=== PATIENT | female | born 1970 | race American Indian/Alaskan Native ===

== ENCOUNTER 2018-03-21 10:31 | Inpatient (IN) | payer OTHER ==
[2018-03-21] MEDS ORDERED: Propofol 10 mg/ml Inj (20 ML) ONE (12:07)
[2018-03-21] MEDS ORDERED: Midazolam 2 MG/2 ML VIAL ONE (12:07)
[2018-03-21] MEDS ORDERED: ceFAZolin IV 1 gm in Dextrose 2 GM/100 ML BAG IVPB ONE (13:35)
[2018-03-21] MEDS ORDERED: Neostigmine Methylsulfate 3mg/3ml Syringe IV ONE (16:37)
[2018-03-21] MEDS ORDERED: Methylene Blue 10 mg/mL(10ml) IV ONE (17:02)
[2018-03-21] MEDS ORDERED: HYDROmorphone 0.5 mg/0.5 ml ISec IVP PRN (17:28)
--- NOTE | 2018-03-21 17:32 | PCM.SURG1 ---
Surgeon's Initial Post Op Note - Surgeon's Notes Surgeon: Leona valente MD Manager Medicaid: Russell Garcia MD Type of Anesthesia: General Endo Pre-Operative Diagnosis: Abnromal uterine bleeidng, pelvic pain, symptomatic fibroid uterus, pelvic pressure Operative Findings: enlarged 20 + week enarlged multifibroid uteurs, normal tubes, left ovary adherent to uterus with small bowel adhesions posterioly, anterior myoma 4cm, enlarged 12 cm posterio myoma along right anterior uterien artery, abdmina myomecotmy performed in conjuction with a supracerbica lhysterecotmy, bilateura uteral jets on cystsocpy. Dr Emory Garcia was surgical assistan and was presnet for entire case and eseensial in gainin entry, retraction, expousre,performing myoecotmy, supcracericl hysterecotmy, cloign all layers. blood transfusion1 unit intraoperative Post-Operative Diagnosis: same as above Operation Performed: Exploratory larparscpoy, supracervical hysterecotmy, abdominal myomecotmy, left salpingoophercotmy, right salpingectomy, cystoscopy, lysis of small bowel adhesions Specimen/Specimens Removed: uteurs, portion of cervix, left and right fallopian tubes, left oophrecotmy, Estimated Blood Loss: EBL {In ML}: 600 Blood Products Given: N/A Drains Used: No Drains Post-Op Condition: Good Date of Surgery/Procedure: 03/21/18 Time of Surgery/Procedure: 14:00
[2018-03-21] MEDS ORDERED: Lactated Ringer's 1,000 ML IV ONE ×2 (17:46)
[2018-03-21] MEDS ORDERED: Sodium Chloride 0.9% 500 ML IV ONE (18:54)
[2018-03-21 19:00] LABS: HEMOGLOBIN 9.5 g/dL (11.0-16.0)
[2018-03-21] MEDS: Lactated Ringer's 1,000 ML IV SCH (19:40)
[2018-03-21] MEDS: Acetaminophen 650mg/20.3ml solution UD PO SCH (22:25)
[2018-03-22] MEDS: cefOXitin IV 1 gm in Dextrose 1 GM/50 ML BAG IVPB SCH ×2 (01:00→09:18)
[2018-03-22] MEDS ORDERED: HYDROmorphone 0.5 mg/0.5 ml ISec IVP STA (01:27)
[2018-03-22] MEDS: Lactated Ringer's 1,000 ML IV SCH (04:30)
[2018-03-22] MEDS: Acetaminophen 650mg/20.3ml solution UD PO SCH ×3 (06:16→22:00)
[2018-03-22 08:05] LABS: HEMOGLOBIN 8.1 g/dL (11.0-16.0); MEAN CELL VOLUME 87.4 fL (81.0-99.0); MEAN CORPUSCULAR HEMOGLOBIN 29.2 pg (27.0-31.0); MEAN CORPUSCULAR HGB CONC 33.4 g/dL (33.0-37.0); MEAN PLATELET VOLUME 9.3 fL (7.2-11.7); RBC 2.79 Mil/uL (3.80-5.20); RED CELL DISTRIBUTION WIDTH 16.1 % (11.5-14.5); WHITE BLOOD COUNT 12.5 K/uL (4.8-10.8)
[2018-03-22 08:25] LABS: ALB/GLOB RATIO 1.1 (1.0-2.1); ALBUMIN 2.9 g/dL (3.5-5.0); ALT/SGPT 23 U/L (9-52); AST/SGOT 32 U/L (14-36); BLOOD UREA NITROGEN 8 mg/dL (7-17); CALCIUM 7.7 mg/dl (8.6-10.4); GFR NON-AFRICAN AMERICAN > 60
[2018-03-22] MEDS ORDERED: Benzocaine/Menthol (Cepacol) Lozenge MT PRN (10:15)
--- NOTE | 2018-03-22 11:47 | CP.PCM.PN ---
Subjective - Date & Time of Evaluation Date of Evaluation: 03/22/18 Time of Evaluation: 10:00 - Subjective Subjective: Pt seen and examiend and reports pain isn RLQ with touching near inciciosn, currently 3/10 controlled with IV pain medcaion. pt not yet out of bed, toelraing liquids wihtout nause, vomiting dneis any fever, hcill, naues, ovmitng, cp, sob, dizzyness, lighthenadd Objective - Vital Signs/Intake and Output Vital Signs (last 24 hours): Temp Pulse Resp BP Pulse Ox 98.6 F 68 18 109/57 L 98 03/22/18 08:00 03/22/18 08:00 03/22/18 08:00 03/22/18 08:00 03/22/18 08:00 Intake and Output: 03/22/18 03/22/18 06:59 18:59 Intake Total 1350 125 Output Total 1950 Balance -600 125 - Medications Medications: Current Medications Acetaminophen (Tylenol 650mg/20.3ml Solution Ud) 975 mg PO Q8 [facility] Last Admin: 03/22/18 06:16 Dose: 975 mg Benzocaine/Menthol (Cepacol Sore Throat) 1 meghna MT Q4 PRN PRN Reason: Sore Throat Ferrous Sulfate (Feosol) 325 mg PO BID [facility] Lactated Ringer's (Lactated Ringer's) 1,000 mls @ 125 mls/hr IV .Q8H [facility] Last Admin: 03/22/18 04:30 Dose: 125 mls/hr Indomethacin (Indocin) 25 mg PO TID [facility] Ketorolac Tromethamine (Toradol) 30 mg IVP Q6H [facility] Last Admin: 03/22/18 09:17 Dose: 30 mg Simethicone (Mylicon Chew Tab) 80 mg PO Q8 [facility] - Labs Labs: 03/22/18 07:57 03/22/18 07:57 - Constitutional Appears: Well, Non-toxic - Head Exam Head Exam: ATRAUMATIC, NORMAL INSPECTION - Eye Exam Eye Exam: EOMI Pupil Exam: PERRL - ENT Exam ENT Exam: Mucous Membranes Moist, Normal Exam - Neck Exam Neck Exam: Normal Inspection - Respiratory Exam Respiratory Exam: Clear to Ausculation Bilateral, NORMAL BREATHING PATTERN - Cardiovascular Exam Cardiovascular Exam: REGULAR RHYTHM, +S1, +S2 - GI/Abdominal Exam GI & Abdominal Exam: Soft, Tenderness, Normal Bowel Sounds Additional comments: TTP RLQ inciscion c/d/i no ugarind, no rebound tenderness no rigidity - Exam Additional comments: no gross vaginal bleeding - Back Exam Back Exam: NORMAL INSPECTION Additional comments: no cva b/l - Neurological Exam Neurological Exam: Alert, Awake, Oriented x3 - Psychiatric Exam Psychiatric exam: Normal Affect, Normal Mood - Skin Skin Exam: Dry, Intact, Normal Color, Warm Additional comments: negative farnaz's sign Assessment and Plan (1) S/P abdominal supracervical subtotal hysterectomy Assessment & Plan: 48 y/o s/p Ex Lap with abodminal myomecotmy-ROSE LSO, RT salpingecoty, INDIRA POD #1 s/p intraoperative 1 unit PRBC with acute blood loss anemia, currently stable 1. Pain managmnet: IV Toradol, po acetamnionbe will transion to p omeds 7pm 2. dc chandler 3. Advanvce diet as tolearted 4. Abdominla bidner, incentive spiromter 5. Cout of bed with assistance 6. Ferrous sulfate 7. Simethionce 8. IVH heplock once tolerating po diet 9. AM CBC Status: Acute (2) S/P myomectomy Status: Acute (3) Anemia Status: Acute
[2018-03-22] MEDS: Simethicone 80 mg Chewtab PO SCH ×2 (14:46→21:19)
--- NOTE | 2018-03-22 23:03 | OP ---
PROCEDURE DATE: 03/21/2017 SURGEON: Leona Davis MD PAINT TINTER: Emory Garica MD TYPE OF ANESTHESIA: General endotracheal. PREOPERATIVE DIAGNOSES: Abnormal uterine bleeding, pelvic pain, symptomatic fibroid uterus, pelvic pressure. POSTOPERATIVE DIAGNOSES: Abnormal uterine bleeding, pelvic pain, symptomatic fibroid uterus, pelvic pressure. OPERATIVE FINDINGS: Enlarged 20-week over 250 g multifibroid uterus, normal appearing tubes, left ovary adherent to uterus with small bowel adhesions posteriorly, uterine myoma 4 cm, enlarged 12 cm posterior myoma along right anterior uterine artery. Abdominal myomectomy performed in conjunction with supracervical hysterectomy, bilateral ureteral jets on cystoscopy. Dr. Emory Garcia, observation assistant, was present for the entire case essentially in gaining entry, retraction, exposure, performing myomectomy, holding the bladder blade, closing all layers. Blood transfusion 1 unit intraoperatively. PROCEDURES PERFORMED: Supracervical hysterectomy with abdominal myomectomy, left salpingo-oophorectomy, right salpingectomy, cystoscopy, lysis of small bowel adhesions posteriorly, lysis of bladder adhesions anteriorly. SPECIMENS REMOVED: Uterus, portion of cervix, left and right fallopian tubes, left ovary. ESTIMATED BLOOD LOSS: 600 mL. BLOOD PRODUCTS: None. COMPLICATIONS: None. DESCRIPTION OF PROCEDURE: The patient was taken to the operating room where she was given general anesthesia. Once it was found to be adequate, she was placed on the operating table in a supine position. A Bal catheter was then inserted prior to prepping the patient. The patient was then prepped and draped in the usual sterile fashion. A time-out confirmed correct patient and correct procedure. The patient was given preoperative prophylactic antibiotics. Following this, a Pfannenstiel skin incision was made with scalpel and carried down to the underlying fascia with the Bovie. The fascia was incised in the midline. The incision was extended laterally with the Bovie. The inferior aspect of the fascial incision was grasped with Marilee clamps, and the underlying rectus muscles were dissected off bluntly with the use of the Bovie. Attention was then turned to the superior aspect of the fascial incision, which in a similar fashion, was grasped with Marilee clamps, and the underlying rectus muscles were dissected off bluntly with the use of the Bovie. The rectus muscles were then bluntly in the midline. The peritoneum was identified in clear space and entered sharply with Metzenbaum scissors. The incision was extended laterally and superiorly until there was good visualization. The enlarged fibroid was noted. The uterus was then exteriorized carefully. There were adhesions noted that were carefully lysed anteriorly of the bladder using the Metzenbaum scissors to help further remove the bladder away. Following this, a Toribio retractor was placed. The bowel was tucked away into the upper abdomen to improve visualization and protect the adjacent tissue. The uterus was enlarged with multiple fibroids noted posteriorly and anteriorly. There were normal tubes bilaterally. The left ovary appeared abnormal and was then atrophic appearing to the left ovary. The peritoneum was draped over the entire left portion of the left adnexa in level of the IP over to the anterior lower uterine segment. The uterus appeared to be malrotated given the enlarged 12-cm posterior myoma. Filmy adhesions were carefully removed. A was then inserted into the fundus of the uterus to help allow for retraction and exposure. The round ligament on either side was grasped and divided using the LigaSure device. The anterior portion of the broad ligament was then inserted, was then entered down to the level of the bladder flap. The bladder was then dissected anteriorly. This was done on either side. Following this, the right utero-ovarian ligament was identified, clamped doubly with the Sil and suture ligated after the ureter was identified. The right fallopian tube was carefully removed from the distal end of the fimbriated end using the LigaSure device up to the level of the cornua. Following this, adhesions were carefully lysed posterior of the small bowel in the clear area to help further dissect the posterior portion of the uterus. Following this, the left IP ligament was identified after identifying the ureter and was doubly clamped, ligated using the Sil device after the peritoneal adhesions were carefully lysed. Following this, the uterine arteries were then carefully skeletonized; however, there was an enlarged right myoma noted extending posteriorly. After careful dissection, a myomectomy was performed to help with careful skeletonization and clamping of the uterine artery on the right side. The left side was more visible; however, there were multiple myomas distorting the view. At that point, after the myomectomy was performed, there was an additional myoma noted along the anterior portion, which was also removed prior to removal of the specimen. After clamping of the uterine artery on both sides, the cardinal ligaments were bilaterally clamped, cut, and suture ligated. The uterosacral ligaments were also ligated. At that point, there was an enlarged posterior myoma noted and due to visualization, the specimen was then amputated at the level of the cervix and removed off the field. The cervix was then grasped up with Allis clamps. The posterior myoma was then removed that was enlarged performing a myomectomy, which was approximately 12 cm. A superficial incision was made with the Bovie, and the myoma was then carefully dissected out using towel clamps. Following this, there was good hemostasis noted. The cervical cuff was then closed using interrupted sutures with suspension to the uterosacral ligament. The abdomen was then carefully irrigated. There was good hemostasis noted. All pedicles were then sequentially checked for hemostasis, which appeared excellent. The bowel and omentum was observed, and there was no evidence of bleeding or lacerations in the operating field. All retractors were removed from the abdomen including all sponge and lap pads. The peritoneum was reapproximated and closed using a 2-0 chromic suture. The rectus muscles were then reapproximated and closed using a 2-0 chromic in an interrupted manner. The fascia was reapproximated and closed with 0 Vicryl in a running continuous fashion. The subcutaneous space was closed with a 2-0 plain in an interrupted manner. The skin was reapproximated and closed with a 4-0 Monocryl in a running subcuticular fashion. The abdomen was prepped and cleaned, and at that point cystoscopy was then performed. The surgeon re-gloved. Attention was turned to the peritoneum. The bladder was then removed and a 30-degree cystoscope was then inserted. There was an intact bladder. There were no sutures noted, no lacerations, no cystotomy, with bilateral ureteral jets noted from each orifice. The cystoscopy was then removed, and a new Bal catheter was then inserted. At the end of the procedure, all needle, sponge and instrument counts were noted to be correct. The patient tolerated the procedure well and was transferred to the recovery room in stable condition. Leona Davis MD MTDD
[2018-03-23] MEDS ORDERED: Acetaminophen-Codeine 300/30 mg Tab PO PRN (04:58)
--- NOTE | 2018-03-23 04:58 | CP.PCM.PN ---
Subjective - Date & Time of Evaluation Date of Evaluation: 03/23/18 Time of Evaluation: 03:00 - Subjective Subjective: pt seen adn eevlauted, currently sleeping no cmpliant as per nurse. Objective - Vital Signs/Intake and Output Vital Signs (last 24 hours): Temp Pulse Resp BP Pulse Ox 99.8 F H 82 20 112/67 99 03/23/18 00:00 03/23/18 00:00 03/23/18 00:00 03/23/18 00:00 03/23/18 00:00 Intake and Output: 03/22/18 03/23/18 18:59 06:59 Intake Total 2125 Output Total 3320 Balance -1195 - Medications Medications: Current Medications Acetaminophen (Tylenol 650mg/20.3ml Solution Ud) 975 mg PO Q8 [facility] Last Admin: 03/22/18 22:00 Dose: Not Given Benzocaine/Menthol (Cepacol Sore Throat) 1 meghna MT Q4 PRN PRN Reason: Sore Throat Last Admin: 03/22/18 14:46 Dose: 1 meghna Ferrous Sulfate (Feosol) 325 mg PO BID [facility] Last Admin: 03/22/18 18:06 Dose: 325 mg Lactated Ringer's (Lactated Ringer's) 1,000 mls @ 125 mls/hr IV .Q8H [facility] Last Admin: 03/22/18 04:30 Dose: 125 mls/hr Indomethacin (Indocin) 25 mg PO TID [facility] Last Admin: 03/22/18 18:08 Dose: 25 mg Ketorolac Tromethamine (Toradol) 30 mg IVP Q6H [facility] Last Admin: 03/22/18 21:17 Dose: 30 mg Simethicone (Mylicon Chew Tab) 80 mg PO Q8 [facility] Last Admin: 03/22/18 21:19 Dose: 80 mg - Labs Labs: 03/22/18 07:57 03/22/18 07:57 - Constitutional Appears: Well, Non-toxic - Head Exam Head Exam: ATRAUMATIC, NORMAL INSPECTION - Eye Exam Eye Exam: EOMI - ENT Exam ENT Exam: Mucous Membranes Moist - Cardiovascular Exam Cardiovascular Exam: REGULAR RHYTHM, +S1, +S2 - GI/Abdominal Exam GI & Abdominal Exam: Soft, Normal Bowel Sounds Additional comments: no guaridn no teboudn tendnere no rgidity incicons c/d/i - Exam Additional comments: no vaginal bleeidng Assessment and Plan (1) S/P abdominal supracervical subtotal hysterectomy Assessment & Plan: s/p ROSE abd myoemcotmy LSO rt slapingecmy INDIRA POD #2 with acute blood loss aymtosm anemia currently stable 1. pain managment 2. regluar deit 3. ecnoruage ambaitn 4. bowel regimen 5. AM cbc 6. acute blood loss nemia: iron 7. abodminal binder, incenstive spirometer 8. dvt prophyalaixs Status: Acute (2) S/P myomectomy Status: Acute (3) Anemia Status: Acute
[2018-03-23] MEDS: Simethicone 80 mg Chewtab PO SCH ×3 (05:55→21:52)
[2018-03-23] MEDS: Acetaminophen-Codeine 300/30 mg Tab PO PRN ×2 (05:56→17:16)
[2018-03-23] MEDS: Acetaminophen 650mg/20.3ml solution UD PO SCH ×2 (06:02→21:49)
[2018-03-23 07:31] LABS: BASO # 0.1 K/uL (0.0-0.2); BASO % 0.6 % (0.0-2.0); EOS % 0.4 % (0.0-4.0); HEMOGLOBIN 7.2 g/dL (11.0-16.0); LYMPH # 1.5 K/uL (1.0-4.3); LYMPH % 13.4 % (20.0-40.0); MEAN CELL VOLUME 87.8 fL (81.0-99.0); MEAN CORPUSCULAR HEMOGLOBIN 29.4 pg (27.0-31.0); MEAN CORPUSCULAR HGB CONC 33.5 g/dL (33.0-37.0); MEAN PLATELET VOLUME 9.5 fL (7.2-11.7); MONO % 8.6 % (0.0-10.0); NEUT # 8.5 K/uL (1.8-7.0); RBC 2.46 Mil/uL (3.80-5.20); RED CELL DISTRIBUTION WIDTH 15.8 % (11.5-14.5); WHITE BLOOD COUNT 11.1 K/uL (4.8-10.8)
[2018-03-23] MEDS ORDERED: Magnesium Hydroxide Susp 30 ml UD PO ONE (14:30)
[2018-03-23 20:00] VITALS: RESP 20
[2018-03-24] MEDS: Acetaminophen 650mg/20.3ml solution UD PO SCH ×2 (06:19→13:03)
[2018-03-24] MEDS: Simethicone 80 mg Chewtab PO SCH ×2 (06:21→13:01)
[2018-03-24 07:50] VITALS: BP 125/67; PULSE 88; O2SAT 99
[2018-03-24 08:01] VITALS: TEMP 99.4
[2018-03-24] MEDS ORDERED: Influenza Vaccine 60 mcg/0.5 mL SYR (4YR UP) IM ONE (08:13)
[2018-03-24 09:28] LABS: BASO % 0.3 % (0.0-2.0); EOS # 0.2 K/uL (0.0-0.7); EOS % 1.5 % (0.0-4.0); HEMOGLOBIN 7.4 g/dL (11.0-16.0); LYMPH # 1.7 K/uL (1.0-4.3); MEAN CELL VOLUME 88.7 fL (81.0-99.0); MEAN CORPUSCULAR HEMOGLOBIN 30.2 pg (27.0-31.0); MEAN CORPUSCULAR HGB CONC 34.1 g/dL (33.0-37.0); MEAN PLATELET VOLUME 9.3 fL (7.2-11.7); MONO # 0.6 K/uL (0.0-0.8); NEUT # 7.5 K/uL (1.8-7.0); NEUT % 75.2 % (50.0-75.0); RBC 2.45 Mil/uL (3.80-5.20); RED CELL DISTRIBUTION WIDTH 15.5 % (11.5-14.5); WHITE BLOOD COUNT 9.9 K/uL (4.8-10.8)
--- NOTE | 2018-03-25 01:21 | CP.PCM.DIS ---
Provider - Provider Date of Admission: 03/21/18 10:31 Attending physician: Leona Davis MD Time Spent in preparation of Discharge (in minutes): 30 Diagnosis - Discharge Diagnosis (1) S/P abdominal supracervical subtotal hysterectomy Status: Acute (2) S/P myomectomy Status: Acute (3) Anemia Status: Acute Hospital Course - Lab Results Lab Results: Most Recent Lab Values WBC 9.9 K/uL (4.8-10.8) 03/24/18 09:18 RBC 2.45 Mil/uL (3.80-5.20) L 03/24/18 09:18 Hgb 7.4 g/dL (11.0-16.0) L 03/24/18 09:18 Hct 21.8 % (34.0-47.0) L 03/24/18 09:18 MCV 88.7 fL (81.0-99.0) 03/24/18 09:18 MCH 30.2 pg (27.0-31.0) 03/24/18 09:18 MCHC 34.1 g/dL (33.0-37.0) 03/24/18 09:18 RDW 15.5 % (11.5-14.5) H 03/24/18 09:18 Plt Count 324 K/uL (130-400) 03/24/18 09:18 MPV 9.3 fL (7.2-11.7) 03/24/18 09:18 Neut % (Auto) 75.2 % (50.0-75.0) H 03/24/18 09:18 Lymph % (Auto) 17.0 % (20.0-40.0) L 03/24/18 09:18 Davis % (Auto) 6.0 % (0.0-10.0) 03/24/18 09:18 Eos % (Auto) 1.5 % (0.0-4.0) 03/24/18 09:18 Baso % (Auto) 0.3 % (0.0-2.0) 03/24/18 09:18 Neut # (Auto) 7.5 K/uL (1.8-7.0) H 03/24/18 09:18 Lymph # (Auto) 1.7 K/uL (1.0-4.3) 03/24/18 09:18 Davis # (Auto) 0.6 K/uL (0.0-0.8) 03/24/18 09:18 Eos # (Auto) 0.2 K/uL (0.0-0.7) 03/24/18 09:18 Baso # (Auto) 0.0 K/uL (0.0-0.2) 03/24/18 09:18 Sodium 135 mmol/L (132-148) 03/22/18 07:57 Potassium 4.1 mmol/L (3.6-5.2) 03/22/18 07:57 Chloride 103 mmol/L (98-107) 03/22/18 07:57 Carbon Dioxide 26 mmol/L (22-30) 03/22/18 07:57 Anion Gap 10 (10-20) 03/22/18 07:57 BUN 8 mg/dL (7-17) 03/22/18 07:57 Creatinine 0.7 mg/dL (0.7-1.2) 03/22/18 07:57 Est GFR ( Amer) > 60 03/22/18 07:57 Est GFR (Non-Af Amer) > 60 03/22/18 07:57 Random Glucose 133 mg/dL (65-105) H 03/22/18 07:57 Calcium 7.7 mg/dl (8.6-10.4) L 03/22/18 07:57 Total Bilirubin 0.8 mg/dL (0.2-1.3) 03/22/18 07:57 AST 32 U/L (14-36) 03/22/18 07:57 ALT 23 U/L (9-52) 03/22/18 07:57 Alkaline Phosphatase 33 U/L (38-126) L 03/22/18 07:57 Total Protein 5.5 g/dL (6.3-8.3) L 03/22/18 07:57 Albumin 2.9 g/dL (3.5-5.0) L 03/22/18 07:57 Globulin 2.6 gm/dL (2.2-3.9) 03/22/18 07:57 Albumin/Globulin Ratio 1.1 (1.0-2.1) 03/22/18 07:57 Blood Type B POSITIVE 03/21/18 11:52 Antibody Screen Negative 03/21/18 11:52 - Hospital Course Hospital Course: s/p ex lap abd myoemcotmy man doing well Discharge Exam - Head Exam Head Exam: ATRAUMATIC, NORMAL INSPECTION Additional comments: see last progress note Discharge Plan - Follow Up Plan Condition: GOOD Disposition: HOME/ ROUTINE Instructions: Good Food Sources of Iron, How to Prevent Surgical Site Infections, Hysterectomy (DC)
== END 2018-03-24 14:32 | disposition home or self-care (01) | DRG 742 ==
LOC: C.9S 10:31 → C.4M 20:22
PROVIDERS: ADMIT Obstetrics & Gynecology; ATTEND Obstetrics & Gynecology
PROC: 0T788DZ Dilation of Bilateral Ureters with Intraluminal Device, Via Natural or Artificial Opening Endoscopic (ICD-10-PCS; 2018-03-21)
PROC: 30233N1 Transfusion of Nonautologous Red Blood Cells into Peripheral Vein, Percutaneous Approach (ICD-10-PCS; 2018-03-21)
PROC: 0UB90ZZ Excision of Uterus, Open Approach (ICD-10-PCS; 2018-03-21)
PROC: 0UT90ZL Resection of Uterus, Supracervical, Open Approach (ICD-10-PCS; principal; 2018-03-21 12:00)
PROC: 0UT60ZZ Resection of Left Fallopian Tube, Open Approach (ICD-10-PCS; 2018-03-21 12:00)
PROC: 0UT10ZZ Resection of Left Ovary, Open Approach (ICD-10-PCS; 2018-03-21 12:00)
PROC: 0DN80ZZ Release Small Intestine, Open Approach (ICD-10-PCS; 2018-03-21 12:00)
PROC: 0TN Urinary System, Release (ICD-10-PCS; 2018-03-21 12:00)
DX: D25.9 Leiomyoma of uterus, unspecified (principal); D62 Acute posthemorrhagic anemia; N93.9 Abnormal uterine and vaginal bleeding, unspecified; N83.12 Corpus luteum cyst of left ovary; N83.292 Other ovarian cyst, left side; N83.8 Other noninflammatory disorders of ovary, fallopian tube and broad ligament; N73.6 Female pelvic peritoneal adhesions (postinfective); N32.89 Other specified disorders of bladder; R10.2 Pelvic and perineal pain